=== PATIENT | male | born 1945 | race Caucasian/White ===

== ENCOUNTER 2021-04-12 12:10 | Inpatient (IN) | payer BC, MEDICARE ==
--- NOTE | 2021-04-12 12:55 | ED ---
General Adult HPI - General Chief complaint: Neuro Symptoms/Deficit Stated complaint: Slurred Speech Time Seen by Provider: 04/12/21 12:28 Source: patient, family, RN notes reviewed Mode of arrival: ambulatory Limitations: no limitations - History of Present Illness Initial comments: Patient is a pleasant 75-year-old male presenting to the emergency Department with complaints of slurred speech and facial weakness. Patient did have some slurred speech yesterday, mild. This is persistent today. Patient also now has right-sided facial weakness since this morning. No headache. No confusion. No extremity weakness. No difficulty with ambulation. No history of similar symptoms previously. Onset was around 5:00 PM yesterday - Related Data Home Medications Medication Instructions Recorded Confirmed Folic Acid 1 mg PO HS 08/24/16 04/12/21 Gabapentin [Neurontin] 300 mg PO TID 08/24/16 04/12/21 Metoprolol Tartrate [Lopressor] 50 mg PO BID 08/24/16 04/12/21 Simvastatin [Zocor] 20 mg PO HS 08/24/16 04/12/21 Certolizumab Pegol [Cimzia] 400 mg SQ Q30D 04/12/21 04/12/21 Cyanocobalamin (Vitamin B-12) 2,500 mcg PO DAILY 04/12/21 04/12/21 [Vitamin B-12] Methotrexate 50mg/2mg Vial 25 mg SQ WE 04/12/21 04/12/21 Allergies Allergy/AdvReac Type Severity Reaction Status Date / Time mustard Allergy Anaphylaxis Verified 04/12/21 14:53 soybean Allergy Anaphylaxis Verified 04/12/21 14:53 grain dust Allergy Unknown Uncoded 04/12/21 14:53 Review of Systems ROS Statement: Those systems with pertinent positive or pertinent negative responses have been documented in the HPI. ROS Other: All systems not noted in ROS Statement are negative. Constitutional: Denies: fever Eyes: Denies: eye pain ENT: Denies: ear pain Respiratory: Denies: cough Cardiovascular: Denies: chest pain Endocrine: Denies: fatigue Gastrointestinal: Denies: abdominal pain Genitourinary: Denies: dysuria Musculoskeletal: Denies: back pain Skin: Denies: rash Neurological: Reports: as per HPI, weakness. Denies: headache Past Medical History Past Medical History: Hypertension History of Any Multi-Drug Resistant Organisms: None Reported Past Surgical History: Orthopedic Surgery Past Psychological History: No Psychological Hx Reported Smoking Status: Never smoker Past Alcohol Use History: Occasional Past Drug Use History: None Reported General Exam Limitations: no limitations General appearance: alert, in no apparent distress Head exam: Present: normocephalic Eye exam: Present: normal appearance, PERRL, EOMI ENT exam: Present: normal oropharynx Neck exam: Present: normal inspection Respiratory exam: Present: normal lung sounds bilaterally Cardiovascular Exam: Present: regular rate, normal rhythm GI/Abdominal exam: Present: soft. Absent: tenderness Extremities exam: Present: normal inspection Neurological exam: Present: alert, oriented X3 Expanded Neurological exam: Present: protecting the airway, other (Age and does have some slurred speech.) Cranial nerves: EOM's Intact: Normal, Facial Palsy with Forehead Movement: Abnormal Right (Right facial weakness. Forehead and eyelids move normal) Sensory exam: Upper Extremity Light Touch: Normal, Lower Extremity Light Touch: Normal Motor strength exam: RUE: 5, LUE: 5, RLE: 5, LLE: 5 Eye Response: (4) open spontaneously Motor Response: (6) obeys commands Verbal Response: (5) oriented Psychiatric exam: Present: normal affect, normal mood Skin exam: Present: normal color Course Vital Signs 04/12/21 04/12/21 04/12/21 12:11 13:16 14:00 Temperature 98.0 F Pulse Rate 49 L 49 L 57 L Respiratory 18 18 18 Rate Blood Pressure 181/84 136/82 167/93 O2 Sat by Pulse 97 95 97 Oximetry - Reevaluation(s) Reevaluation #1: 04/12/21 13:05 Patient is not a TPA candidate secondary to onset more Than 4.5 hours. EKG Findings - EKG Comments: EKG Findings:: Sinus bradycardia with a rate of 50. NC 192. QRS 88. QT 424. QTC 36. Normal axis. Normal QRS. Early repolarization. Medical Decision Making - Medical Decision Making Patient reevaluated and unchanged. Patient and family updated on results and plan. Case was discussed with Dr. Perdue, who will admit covering hospital call - Lab Data Result diagrams: 04/12/21 13:24 04/12/21 13:24 Lab Results 04/12/21 04/12/21 04/12/21 Range/Units 13:24 13:24 13:24 WBC 5.3 (3.8-10.6) k/uL RBC 4.11 L (4.30-5.90) m/uL Hgb 13.7 (13.0-17.5) gm/dL Hct 39.9 (39.0-53.0) % MCV 97.2 (80.0-100.0) fL MCH 33.4 (25.0-35.0) pg MCHC 34.4 (31.0-37.0) g/dL RDW 12.7 (11.5-15.5) % Plt Count 184 (150-450) k/uL MPV 8.6 Neutrophils % 48 % Lymphocytes % 33 % Monocytes % 9 % Eosinophils % 8 % Basophils % 1 % Neutrophils # 2.6 (1.3-7.7) k/uL Lymphocytes # 1.7 (1.0-4.8) k/uL Monocytes # 0.5 (0-1.0) k/uL Eosinophils # 0.4 (0-0.7) k/uL Basophils # 0.0 (0-0.2) k/uL PT 10.3 (9.0-12.0) sec INR 1.0 (<1.2) APTT 26.2 (22.0-30.0) sec Sodium 136 L (137-145) mmol/L Potassium 4.9 (3.5-5.1) mmol/L Chloride 104 (98-107) mmol/L Carbon Dioxide 24 (22-30) mmol/L Anion Gap 8 mmol/L BUN 17 (9-20) mg/dL Creatinine 1.26 H (0.66-1.25) mg/dL Est GFR (CKD-EPI)AfAm 64 (>60 ml/min/1.73 sqM) Est GFR (CKD-EPI)NonAf 55 (>60 ml/min/1.73 sqM) Glucose 77 (74-99) mg/dL Calcium 8.8 (8.4-10.2) mg/dL Total Bilirubin 0.5 (0.2-1.3) mg/dL AST 37 (17-59) U/L ALT 16 (4-49) U/L Alkaline Phosphatase 57 (38-126) U/L Troponin I (0.000-0.034) ng/mL Total Protein 7.6 (6.3-8.2) g/dL Albumin 4.2 (3.5-5.0) g/dL 04/12/21 Range/Units 13:24 WBC (3.8-10.6) k/uL RBC (4.30-5.90) m/uL Hgb (13.0-17.5) gm/dL Hct (39.0-53.0) % MCV (80.0-100.0) fL MCH (25.0-35.0) pg MCHC (31.0-37.0) g/dL RDW (11.5-15.5) % Plt Count (150-450) k/uL MPV Neutrophils % % Lymphocytes % % Monocytes % % Eosinophils % % Basophils % % Neutrophils # (1.3-7.7) k/uL Lymphocytes # (1.0-4.8) k/uL Monocytes # (0-1.0) k/uL Eosinophils # (0-0.7) k/uL Basophils # (0-0.2) k/uL PT (9.0-12.0) sec INR (<1.2) APTT (22.0-30.0) sec Sodium (137-145) mmol/L Potassium (3.5-5.1) mmol/L Chloride (98-107) mmol/L Carbon Dioxide (22-30) mmol/L Anion Gap mmol/L BUN (9-20) mg/dL Creatinine (0.66-1.25) mg/dL Est GFR (CKD-EPI)AfAm (>60 ml/min/1.73 sqM) Est GFR (CKD-EPI)NonAf (>60 ml/min/1.73 sqM) Glucose (74-99) mg/dL Calcium (8.4-10.2) mg/dL Total Bilirubin (0.2-1.3) mg/dL AST (17-59) U/L ALT (4-49) U/L Alkaline Phosphatase (38-126) U/L Troponin I <0.012 (0.000-0.034) ng/mL Total Protein (6.3-8.2) g/dL Albumin (3.5-5.0) g/dL - Radiology Data Radiology results: report reviewed (Computed tomography scan of the brain shows atrophy and chronic small vessel changes. CT angios shows no significant stenosis or occlusion or aneurysm.), image reviewed (Two-view chest x-ray shows no acute process.) Disposition Clinical Impression: Cerebrovascular accident (CVA) Disposition: ADMITTED IP TO THIS HOSP Is patient prescribed a controlled substance at d/c from ED?: No Referrals: Nonstaff,Physician [Primary Care Provider] - 1-2 days Decision Time: 15:28
[2021-04-12] MEDS ORDERED: SODIUM CHLORIDE 0.9% 1,000 ML IV STA (13:03)
[2021-04-12 13:32] LABS: Basophils % (A) 1 %; Eosinophils # (A) 0.4 k/uL (0-0.7); Eosinophils % (A) 8 %; HCT 39.9 % (39.0-53.0); HGB 13.7 gm/dL (13.0-17.5); Lymphocytes # (A) 1.7 k/uL (1.0-4.8); Lymphocytes % (A) 33 %; MCH 33.4 pg (25.0-35.0); MCHC 34.4 g/dL (31.0-37.0); MCV 97.2 fL (80.0-100.0); Mean Platelet Volume 8.6; Monocytes # (A) 0.5 k/uL (0-1.0); Monocytes % (A) 9 %; Neutrophils # (A) 2.6 k/uL (1.3-7.7); Neutrophils % (A) 48 %; Platelet Count 184 k/uL (150-450); RBC 4.11 m/uL (4.30-5.90); RDW 12.7 % (11.5-15.5); WBC 5.3 k/uL (3.8-10.6)
[2021-04-12 13:45] LABS: Partial Thromboplastin Time 26.2 sec (22.0-30.0); Prothrombin Time 10.3 sec (9.0-12.0)
[2021-04-12 13:49] LABS: Albumin 4.2 g/dL (3.5-5.0); Calcium 8.8 mg/dL (8.4-10.2); Potassium 4.9 mmol/L (3.5-5.1); Total Bilirubin 0.5 mg/dL (0.2-1.3); Total Protein 7.6 g/dL (6.3-8.2)
--- NOTE | 2021-04-12 13:57 | XR ---
EXAMINATION TYPE: XR chest 2V DATE OF EXAM: 04/12/2021 COMPARISON: NONE HISTORY: Altered mental status, slurred speech TECHNIQUE: Frontal and lateral views of the chest are obtained. FINDINGS: There is no focal air space opacity, pleural effusion, or pneumothorax seen. The cardiac silhouette size is within normal limits. There are overlying leads. The aorta is dense. There is arth ropathy in the shoulders. The osseous structures are intact. IMPRESSION: No acute cardiopulmonary process.
--- NOTE | 2021-04-12 14:12 | CT ---
EXAMINATION TYPE: CT brain wo con for TPA DATE OF EXAM: 04/12/2021 COMPARISON: None HISTORY: slurred speech CT DLP: 1044 mGycm Automated exposure control for dose reduction was used. Helical acquisition through the brain. FINDINGS: There is opacification of left maxillary sinus, and mucosal disease present in the right maxillary si nus, ethmoid air cells. Cortical atrophy is present. Periventricular white matter shows patchy low at tenuation. There may be a small lacunar infarct in the basal ganglia on the left. There is no hemorrh age or hydrocephalus. There are cerebral vascular calcifications. IMPRESSION: AGE-RELATED CHANGES OF ATROPHY AND CHRONIC SMALL VESSEL ISCHEMIA.
--- NOTE | 2021-04-12 15:13 | CT ---
EXAMINATION TYPE: CT angio head neck DATE OF EXAM: 04/12/2021 HISTORY: slurred speech COMPARISON: CT brain 04/12/2021 CT DLP: 443.1 mGycm. Automated Exposure Control for Dose Reduction was Utilized. TECHNIQUE: CTA scan of the neck is performed with IV Contrast, patient injected with 65 mL of Isovue 370, axial images are obtained, coronal and sagittal reformatted images are reviewed. Three-D recons tructed images are created on an independent workstation and reviewed. FINDINGS: Carotid/Vascular Structures: Classic branching pattern of the aortic arch. Atherosclerotic changes of the bilateral carotid bulbs. No hemodynamically significant stenosis, occlusion, or aneurysm of the bilateral common carotid or internal carotid arteries. Vertebral arteries are patent. The vertebrobas ilar system is supplied by the left vertebral artery. The right vertebral artery terminates in the ri t PICA, representing anatomic variant. Mild emphysematous changes at the lung apices. 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 There is no hemodynamically significant stenosis, occlusion, or aneurysm of the arteries of the he ad. Mucosal thickening of the bilateral maxillary sinuses. IMPRESSION: No hemodynamically significant stenosis, occlusion, or aneurysm of the arteries of the head of the ne ck.
[2021-04-12] MEDS ORDERED: ASPIRIN 325 MG TAB PO STA (15:29)
[2021-04-12] MEDS: SODIUM CHLORIDE 0.9% 1,000 ML IV SCH (15:47)
--- NOTE | 2021-04-12 23:02 | P.HPIM ---
History of Present Illness This is a pleasant 75 years old male with past medical history of rheumatoid arthritis, he follows up at the ID at [place]. He presents with his fiance who stated that last night patient has some slurred speech but she thought he was tired however this morning his speech was slurred speech and she notices deviation of the mouth Schobert come to emergency room. Patient is fully awake and oriented, no headache, no weakness or numbness, he has some slivers H and is deviated to the left side. He denies smoking, no illicit drugs. Occasional alcohol Vitals are stable with mild bradycardia at 54. Blood pressure is slightly el evated 164/71. Labs including CBC, INR, BMP and liver enzymes are unremarkable except for mildly elevated creatinine at 1.26, baseline is unavailable. Troponin is negative at 0.012. Coronal virus not detected. Chest x-ray: The process. The brain: No acute process CTA of the head and neck: Significant hemodynamic stenosis or arterial occlusion EKG showed sinus bradycardia at 50 BPM, no significant ST-T changes, early repolarization In the emergency room patient was started on aspirin, Plavix also added, neurology service were consulted. Review of Systems CONSTITUTIONAL: No fever, no malaise, no fatigue. HEENT: No recent visual problems or hearing problems. Denied any sore throat. CARDIOVASCULAR: No orthopnea, PND, no palpitations, no syncope. PULMONARY: No shortness of breath, no cough, no hemoptysis. GASTROINTESTINAL: No diarrhea, no nausea, no vomiting, no abdominal pain. Normoactive bowel sounds. NEUROLOGICAL: No headaches, no weakness, no numbness. HEMATOLOGICAL: Denies any bleeding or petechiae. GENITOURINARY: Denies any burning micturition, frequency, or urgency. MUSCULOSKELETAL/RHEUMATOLOGICAL: Denies any joint pain, swelling, or any muscle pain. ENDOCRINE: Denies any polyuria or polydipsia. Past Medical History Past Medical History: Hypertension History of Any Multi-Drug Resistant Organisms: None Reported Past Surgical History: Orthopedic Surgery Past Psychological History: No Psychological Hx Reported Smoking Status: Never smoker Past Alcohol Use History: Occasional Past Drug Use History: None Reported Medications and Allergies Home Medications Medication Instructions Recorded Confirmed Type Folic Acid 1 mg PO HS 08/24/16 04/12/21 History Gabapentin [Neurontin] 300 mg PO TID 08/24/16 04/12/21 History Metoprolol Tartrate [Lopressor] 50 mg PO BID 08/24/16 04/12/21 History Simvastatin [Zocor] 20 mg PO HS 08/24/16 04/12/21 History Certolizumab Pegol [Cimzia] 400 mg SQ Q30D 04/12/21 04/12/21 History Cyanocobalamin (Vitamin B-12) 2,500 mcg PO DAILY 04/12/21 04/12/21 History [Vitamin B-12] Methotrexate 50mg/2mg Vial 25 mg SQ WE 04/12/21 04/12/21 History Allergies Allergy/AdvReac Type Severity Reaction Status Date / Time mustard Allergy Anaphylaxis Verified 04/12/21 14:53 soybean Allergy Anaphylaxis Verified 04/12/21 14:53 grain dust Allergy Unknown Uncoded 04/12/21 14:53 Physical Exam Vitals: Vital Signs Temp Pulse Resp BP Pulse Ox 04/12/21 16:00 51 L 18 165/84 97 04/12/21 15:00 51 L 18 179/89 97 04/12/21 14:00 57 L 18 167/93 97 04/12/21 13:16 49 L 18 136/82 95 04/12/21 12:11 98.0 F 49 L 18 181/84 97 Intake and Output 04/12/21 04/12/21 04/12/21 06:59 14:59 22:59 Other: Weight 77.474 kg GENERAL: The patient is alert and oriented x3, not in any acute distress. Well developed, well nourished. HEENT: Pupils are round and equally reacting to light. EOMI. No scleral icterus. No conjunctival pallor. Normocephalic, atraumatic. No pharyngeal erythema. No thyromegaly. CARDIOVASCULAR: S1 and S2 present. No murmurs, rubs, or gallops. PULMONARY: Chest is clear to auscultation, no wheezing or crackles. ABDOMEN: Soft, nontender, nondistended, normoactive bowel sounds. No palpable organomegaly. MUSCULOSKELETAL: No joint swelling or deformity. EXTREMITIES: No cyanosis, clubbing, or pedal edema. -NEUROLOGICAL: Patient with some slurred speech and face deviated to the left side, rest of cranial nerves are grossly intact. Patient is 5/5 and sensation is intact in all extremities. In general signs are absent SKIN: No rashes. no petechiae. Results CBC & Chem 7: 04/12/21 13:24 04/12/21 13:24 Labs: Abnormal Lab Results - Last 24 Hours (Table) 04/12/21 04/12/21 Range/Units 13:24 13:24 RBC 4.11 L (4.30-5.90) m/uL Sodium 136 L (137-145) mmol/L Creatinine 1.26 H (0.66-1.25) mg/dL Assessment and Plan Assessment: Acute slurred speech and left facial division suspicious for right-sided stroke. Permissive hypertension History of rheumatoid arthritis Plan: This is a pleasant 75 years old male who presents with stroke. Continue with aspirin and Plavix. Neurological assessment and neurology service consult Check hemoglobin A1c, B12 and folate, check TSH. Echocardiogram and carotid duplex. Labs and medication were reviewed.. Continue same treatment. Continue with symptomatic treatment. Resume home medication. Monitor lytes and vitals. DVT and GI prophylaxis. Further recommendations depends on the clinical course of the patient DVT prophylaxis: Subcutaneous heparin GI Prophylaxis: Pepcid PT/OT: Pending Prognosis is guarded
--- NOTE | 2021-04-13 00:02 | P.CNNES ---
History of Present Illness Consult date: 04/12/21 Requesting physician: Nghia Massey Reason for Consult: CVA History of Present Illness: Patient is a 75-year-old right-handed male came to the hospital today at 12:10 PM. Patient came to the hospital for slurred speech and facial weakness. Patient states that his symptoms started yesterday at around 5:30 PM when his voice was slurred. This was mainly noticed by his . She thought he was just tired and did not seek medical attention. He went to sleep. This morning when patient woke up, he continued to have slurred speech and there was right facial droop noticed by his . There was no associated numbness tingling weakness of the upper or lower extremities. He never had any history of strokes or TIAs in the past. His balance was fine. Patient's brought him to the hospital. Vital signs on arrival blood pressure 181/84, pulse rate 49, temperature 98.0. Blood pressure has been staying up, most recent 167/84. Blood test shows normal CBC, PT/PTT, sodium 136 potassium 4.9, BUN 17, creatinine 1.26. Hepatic panel, troponin are normal. Frank virus PCR negative. CT head showed age-related ch anges of atrophy and chronic small vessel ischemia. CTA of head and neck showed no hemodynamically significant stenosis occlusion or aneurysm of the arteries of the head and neck. EKG shows sinus bradycardia, early repolarization. Patient does take simvastatin 20 mg, metoprolol 50 mg twice a day, gabapentin 300 mg 3 times a day, folic acid 1 mg at bedtime, B12 2500 g, methotrexate 25 mg subcu weekly, Cimzia. Patient does not take any antiplatelet medication at home. Patient has borderline diabetes. He has hypertension. Patient has smoked 1 pack per day for 30 years, quit at age 49. He drinks beer "here and there occasionally". Not a heavy drinker. Patient states that after he arrived to the hospital, his speech is slightly improved. Review of Systems All other review of systems completely unremarkable except as mentioned per HPI. All other 14 point review of systems reviewed. Patient is hard of hearing. Denies any double vision, loss of vision. No chest pain, abdominal pain, nausea vomiting diarrhea. Past Medical History Past Medical History: Hypertension History of Any Multi-Drug Resistant Organisms: None Reported Past Surgical History: Orthopedic Surgery Past Psychological History: No Psychological Hx Reported Smoking Status: Never smoker Past Alcohol Use History: Occasional Past Drug Use History: None Reported Medications and Allergies Home Medications Medication Instructions Recorded Confirmed Type Folic Acid 1 mg PO HS 08/24/16 04/12/21 History Gabapentin [Neurontin] 300 mg PO TID 08/24/16 04/12/21 History Metoprolol Tartrate [Lopressor] 50 mg PO BID 08/24/16 04/12/21 History Simvastatin [Zocor] 20 mg PO HS 08/24/16 04/12/21 History Certolizumab Pegol [Cimzia] 400 mg SQ Q30D 04/12/21 04/12/21 History Cyanocobalamin (Vitamin B-12) 2,500 mcg PO DAILY 04/12/21 04/12/21 History [Vitamin B-12] Methotrexate 50mg/2mg Vial 25 mg SQ WE 04/12/21 04/12/21 History Allergies Allergy/AdvReac Type Severity Reaction Status Date / Time mustard Allergy Anaphylaxis Verified 04/12/21 14:53 soybean Allergy Anaphylaxis Verified 04/12/21 14:53 grain dust Allergy Unknown Uncoded 04/12/21 14:53 Physical Examination - Vital Signs Vital Signs: Vital Signs Temp Pulse Resp BP Pulse Ox 04/12/21 18:00 66 18 167/84 97 04/12/21 17:00 54 L 18 97 04/12/21 16:00 51 L 18 165/84 97 04/12/21 15:00 51 L 18 179/89 97 04/12/21 14:00 57 L 18 167/93 97 04/12/21 13:16 49 L 18 136/82 95 04/12/21 12:11 98.0 F 49 L 18 181/84 97 Intake and Output 04/12/21 04/12/21 04/12/21 06:59 14:59 22:59 Other: Weight 77.474 kg Patient is an elderly male, in no acute distress. Patient is alert awake oriented to time place and person. He knows it is and of March and the year is 2020 and that he is in [facility]. Speech is moderately dysarthric and language functions are normal. No aphasia. Patient can name and repeat very well. Attention, concentration and fund of knowledge is adequate. On cranial examination, pupils are round and reacting to light, visual burr are full on confrontation with no neglect on double simultaneous stimulation, extraocular muscles are intact with no nystagmus. Patient has mild right facial asymmetry, tongue protrudes to the midline. Palatal elevation and sensation normal, hearing is at least moderately decreased and shoulder shrug normal, facial sensation normal. On muscle strength testing, there no definitive pronator drift and the strength is normal in arms and legs distally and proximally, except right deltoid which is 5-. Patient attributes right deltoid weakness to doing yard work she yesterday. Deep tendon reflexes are 1 in the upper limbs, trace at the right knee, "artificial knee on the left". Ankles are absent and plantars downgoing. Sensory to touch is equal with no neglect. Cerebellar function showed no ataxia for [id number] testing. No dysdiadochokinesia. Tone and bulk of muscles normal. Gait deferred. On general examination, there is no carotid bruit or murmur, S1-S2 audible. Abd omen is soft nontender. Chest is clear. Peripheral pulses are present. No edema. Results - Laboratory Findings CBC and BMP: 04/12/21 13:24 04/12/21 13:24 Abnormal Lab Findings: Abnormal Labs 04/12/21 04/12/21 13:24 13:24 RBC 4.11 L Sodium 136 L Creatinine 1.26 H Assessment and Plan Assessment: * Probable acute ischemic CVA manifesting with slurred speech and right facial droop. * Hypertension * X tobacco use Plan: * Patient will undergo MRI of the brain to evaluate for an acute stroke. * 2-D echo with bubble study to rule out PFO. * As the CTA of head and neck is normal, no need for carotid Doppler. * We will check fasting a.m. lipid panel, hemoglobin A1c. * Agree with checking B12, folate and TSH. * Patient still has moderate dysarthria. We will place patient on dual antiplatelet medication. Patient was not taking any antiplatelet medication at home. * Continue telemetry monitoring rule out arrhythmia. * We will follow clinically. * Permissive hypertension. * Continue close neuro checks.
[2021-04-13] MEDS: SODIUM CHLORIDE 0.9% 1,000 ML IV SCH ×2 (08:43→08:48)
[2021-04-13] MEDS: CLOPIDOGREL 75 MG TAB PO SCH ×2 (08:48→21:05)
[2021-04-13] MEDS: GABAPENTIN 300 MG CAP PO SCH ×4 (08:48→21:06)
[2021-04-13] MEDS: HEPARIN SODIUM,PORCINE/PF 5,000 UNIT/0.5 ML SYRINGE SQ SCH ×2 (08:48→21:06)
[2021-04-13] MEDS: METOPROLOL TARTRATE 25 MG TAB PO SCH ×2 (08:49→21:06)
[2021-04-13] MEDS: CYANOCOBALAMIN 500 MCG TAB PO SCH (08:53)
[2021-04-13] MEDS ORDERED: FAMOTIDINE 20 MG/2 ML VIAL IV SCH (09:00)
--- NOTE | 2021-04-13 09:28 | P.PN ---
Subjective This is a pleasant 75 years old male with past medical history of rheumatoid arthritis, [facility] He presents with his fiance who stated that last night patient has some slurred speech but she thought he was tired however this morning his speech was slurred speech and she notices deviation of the mouth Schobert come to emergency room. Patient is fully awake and oriented, no headache, no weakness or numbness, he has some slivers H and is deviated to the left side. He denies smoking, no illicit drugs. Occasional alcohol Vitals are stable with mild bradycardia at 54. Blood pressure is slightly elevated 164/71. Labs including CBC, INR, BMP and liver enzymes are unremarkable except for mildly elevated creatinine at 1.26, baseline is unavailable. Troponin is negative at 0.012. Coronal virus not detected. Chest x-ray: The process. The brain: No acute process CTA of the head and neck: Significant hemodynamic stenosis or arterial occlusion EKG showed sinus bradycardia at 50 BPM, no significant ST-T changes, early repolarization In the emergency room patient was started on aspirin, Plavix also added, neurolo gy service were consulted. 04/13/2021 Patient still have slurred this patient today but this fascial deviated to the left side. No other new complaint. Skin if he can be discharged home today I explained to him we started him a new medication and distal lumen workup and he agrees with it. He is hemodynamically stable. He continued on aspirin and Plavix and normal saline at 75 mL/h MRI of the brain and echocardiogram are still pending as well as B12 level and TSH and hemoglobin A1c. Objective - Vital Signs Vital signs: Vital Signs Temp 97.5 F L 04/13/21 08:37 Pulse 65 04/13/21 08:37 Resp 18 04/13/21 08:37 BP 167/86 04/13/21 08:37 Pulse Ox 94 L 04/13/21 08:37 Intake & Output 04/12/21 04/13/21 04/13/21 18:59 06:59 18:59 Weight 77.474 kg - Exam GENERAL: The patient is alert and oriented x3, not in any acute distress. Well developed, well nourished. HEENT: Pupils are round and equally reacting to light. EOMI. No scleral icterus. No conjunctival pallor. Normocephalic, atraumatic. No pharyngeal erythema. No thyromegaly. CARDIOVASCULAR: S1 and S2 present. No murmurs, rubs, or gallops. PULMONARY: Chest is clear to auscultation, no wheezing or crackles. ABDOMEN: Soft, nontender, nondistended, normoactive bowel sounds. No palpable organomegaly. MUSCULOSKELETAL: No joint swelling or deformity. EXTREMITIES: No cyanosis, clubbing, or pedal edema. -NEUROLOGICAL: Patient still have slurred speech, however right facial droop is less severe today. The rest of Cranial nerves are grossly intact . Strength is 5/5, sensation is intact SKIN: No rashes. no petechiae. - Labs CBC & Chem 7: 04/12/21 13:24 04/12/21 13:24 Labs: Abnormal Lab Results - Last 24 Hours (Table) 04/12/21 04/12/21 Range/Units 13:24 13:24 RBC 4.11 L (4.30-5.90) m/uL Sodium 136 L (137-145) mmol/L Creatinine 1.26 H (0.66-1.25) mg/dL Assessment and Plan Assessment: Acute slurred speech and left facial division suspicious for right-sided stroke. Permissive hypertension History of rheumatoid arthritis Plan: This is a pleasant 75 years old male who presents with stroke. Continue with aspirin and Plavix. Neurological assessment and neurology service consult Check hemoglobin A1c, B12 and folate, check TSH. Echocardiogram and carotid duplex. Labs and medication were reviewed.. Continue same treatment. Continue with symptomatic treatment. Resume home medication. Monitor lytes and vitals. DVT and GI prophylaxis. Further recommendations depends on the clinical course of the patient DVT prophylaxis: Subcutaneous heparin GI Prophylaxis: Pepcid PT/OT: Pending Prognosis is guarded
[2021-04-13 10:50] LABS: Chol/HDL Ratio 2.76; LDL Cholesterol,Calculated 73.4 mg/dL (0.0-131.0); VLDL Calculation 16.6 mg/dL (5.00-40.00)
--- NOTE | 2021-04-13 10:50 | MR ---
MR brain without contrast HISTORY: Cerebrovascular accident, slurred speech Multiplanar multisequence imaging through the brain, correlation to CT brain 04/12/2021 There is a small focus of restricted diffusion within the periventricular white matter left frontopar ietal region, corresponding hyperintensity on inversion recovery T2-weighted sequences, there are add itional confluent and scattered hyperintensities within the periventricular, pericallosal, subcortica l white matter. There is motion on exam. There are normal vascular flow voids present. Sinus disease is present withi n the bilateral maxillary sinuses, ethmoid air cells and frontal sinus. Cerebellopontine angles, pratima us callosum, pituitary, cervical medullary junction within normal limits. IMPRESSION: Findings consistent with subacute cerebral vascular accident aerated chronic small vessel ischemic changes, extensive sinus disease.
[2021-04-13 11:05] LABS: Folate, Serum 13.8 ng/mL
[2021-04-13 12:40] LABS: Hemoglobin A1C 5.9 % (4.0-6.0)
[2021-04-13] MEDS: FOLIC ACID 1 MG TAB PO SCH (21:05)
[2021-04-13] MEDS: FAMOTIDINE 20 MG TAB PO SCH (21:05)
[2021-04-14] MEDS: SODIUM CHLORIDE 0.9% 1,000 ML IV SCH ×2 (04:45→14:23)
[2021-04-14] MEDS ORDERED: ASPIRIN 325 MG TAB PO SCH (09:00)
[2021-04-14] MEDS: CYANOCOBALAMIN 500 MCG TAB PO SCH (09:22)
[2021-04-14] MEDS: HEPARIN SODIUM,PORCINE/PF 5,000 UNIT/0.5 ML SYRINGE SQ SCH ×2 (09:23→20:45)
[2021-04-14] MEDS: METOPROLOL TARTRATE 25 MG TAB PO SCH ×2 (09:23→20:43)
[2021-04-14] MEDS: FAMOTIDINE 20 MG TAB PO SCH ×2 (09:23→20:44)
[2021-04-14] MEDS: GABAPENTIN 300 MG CAP PO SCH ×3 (09:23→20:44)
--- NOTE | 2021-04-14 09:57 | P.PN ---
Subjective Progress Note Date: 04/13/21 Patient was seen for a follow-up. Patient was seen in the ED department. Patient is laying comfortably in the bed. Patient states his speech has improved slightly. No new focal symptoms. Denies headache. Patient has been walking to the bathroom and no problems with walking or balance at this time. No new focal symptoms. Objective - Vital Signs Vital signs: Vital Signs Temp 97.8 F 04/13/21 21:25 Pulse 65 04/13/21 21:25 Resp 17 04/13/21 21:25 BP 191/86 04/13/21 21:25 Pulse Ox 97 04/13/21 21:25 Intake & Output 04/13/21 04/13/21 04/14/21 06:59 18:59 06:59 Intake Total 615 Balance 615 Weight 77.474 kg Intake: IV 375 Sodium Chloride 0.9% 1, 375 000 ml @ 75 mls/hr IV . [id number] LUCY Rx#:[id number] Oral 240 - Exam On examination patient is an elderly male, in no distress. Speech is mild to moderately dysarthric. No aphasia. Can name and repeat. Cranial nerves are significant for right facial weakness. Tongue protrudes slightly to the left. Facial sensations normal. Visual burr full. Muscle strength no drift and the strength is normal in arms and legs. Sensations are equal with no neglect. No ataxia. - Labs CBC & Chem 7: 04/12/21 13:24 04/12/21 13:24 Labs: Abnormal Lab Results - Last 24 Hours (Table) 04/13/21 Range/Units 04:47 Vitamin B12 1050.0 H (200.0-944.0) pg/mL Assessment and Plan Assessment: * Acute CVA involving subcortical white matter on the left, likely from small vessel disease. CVA manifesting with slurred speech and right facial droop. * Hypertension * X tobacco use Plan: * MRI of the brain confirmed acute to subacute CVA involving the periventricular white matter left frontoparietal region. Mechanism likely from small vessel disease. * 2-D echo with bubble study to rule out PFO, still outstanding. * CTA of head and neck is normal, no need for carotid Doppler. * Fasting a.m. lipid panel with cholesterol 141, LDL 73, HDL 51, triglycerides 83. * Hemoglobin A1c 5.9. * B12 1050, folate 13.8 and TSH pending. * Continue dual antiplatelet medication for 3 weeks, then stop Plavix and then maintain on aspirin 81 mg twice a day. Patient was not taking any antiplatelet medication at home prior to this stroke. * Continue telemetry monitoring rule out arrhythmia. * Permissive hypertension. * Neurologically clear, when 2-D echo reports available.
[2021-04-14] MEDS ORDERED: METOPROLOL TARTRATE 50 MG TAB PO SCH ×2 (13:30→21:00)
[2021-04-14] MEDS ORDERED: METOPROLOL TARTRATE 25 MG TAB PO STA (13:31)
[2021-04-14] MEDS ORDERED: amLODIPine 2.5 MG TAB PO SCH (14:45)
[2021-04-14] MEDS: CEPHALEXIN 500 MG CAP PO SCH ×3 (15:58→20:44)
[2021-04-14] MEDS ORDERED: hydrALAZINE HCL 25 MG TAB PO PRN (17:51)
--- NOTE | 2021-04-14 17:58 | ECHOF ---
Referral Reason:CVA MEASUREMENTS -------- HEIGHT: 182.9 cm WEIGHT: 79.8 kg BP: 190/82 RVIDd: 3.7 cm (< 3.3) IVSd: 1.5 cm (0.6 - 1.1) LVIDd: 4.0 cm (3.9 - 5.3) LVPWd: 1.6 cm (0.6 - 1.1) IVSs: 1.8 cm LVIDs: 2.1 cm LVPWs: 1.9 cm LAESV Index (A-L): 20.41 ml/m Ao Diam: 3.3 cm (2.0 - 3.7) AV Cusp: 1.9 cm (1.5 - 2.6) LA Diam: 4.2 cm (2.7 - 3.8) MV EXCURSION: 17.297 mm (> 18.000) MV EF SLOPE: 78 mm/s (70 - 150) EPSS: 0.6 cm MV E Michael: 1.09 m/s MV DecT: 224 ms MV A Michael: 0.78 m/s MV E/A Ratio: 1.40 RAP: 5.00 mmHg RVSP: 25.06 mmHg FINDINGS -------- Sinus rhythm. This was a technically adequate study. The left ventricular size is normal. There is moderate concentric left ventricular hypertrophy. O verall left ventricular systolic function is normal with, an EF between 55 - 60 %. The right ventricle is mild to moderately enlarged. Normal LA size by volume 22+/-6 ml/m2. The right atrial size is normal. Contrast study was performed with 2 iv injections of 8 ccs of agitated normal saline, at rest, and wi th cough. No evidence of interatrial communication by agitated saline study analysis. Interatrial and interven tricular septum intact. The aortic valve is trileaflet and appears structurally normal. There is no evidence of aortic regu rgitation. There is no evidence of aortic stenosis. Mild mitral regurgitation is present. Mild tricuspid regurgitation present. There is no evidence of pulmonary hypertension. The right v entricular systolic pressure, as measured by Doppler, is 25.06mmHg. There is no pulmonic regurgitation present. The aortic root size is normal. Normal inferior vena cava with normal inspiratory collapse consistent with estimated right atrial pre ssure of 5 mmHg. There is no pericardial effusion. CONCLUSIONS -------- 1. The left ventricular size is normal. 2. There is moderate concentric left ventricular hypertrophy. 3. Overall left ventricular systolic function is normal with, an EF between 55 - 60 %. 4. The right ventricle is mild to moderately enlarged. 5. No evidence of interatrial communication by color flow doppler analysis. 6. Mild mitral regurgitation is present. 7. Mild tricuspid regurgitation present. CIVIL TECHNICIAN: Bernice Cerrato RDCS
[2021-04-14] MEDS: CLOPIDOGREL 75 MG TAB PO SCH (20:44)
[2021-04-14] MEDS: amLODIPine 2.5 MG TAB PO SCH (20:44)
[2021-04-14] MEDS: FOLIC ACID 1 MG TAB PO SCH (20:44)
[2021-04-14] MEDS ORDERED: ATORVASTATIN 40 MG TAB PO SCH (21:00)
[2021-04-14] MEDS ORDERED: METHOTREXATE SQ SCH (21:36)
--- NOTE | 2021-04-14 22:05 | P.PN ---
Subjective This is a pleasant 75 years old male with past medical history of rheumatoid arthritis, [facility] [place] He presents with his fiance who stated that last night patient has some slurred speech but she thought he was tired however this morning his speech was slurred speech and she notices deviation of the mouth Schobert come to emergency room. Patient is fully awake and oriented, no headache, no weakness or numbness, he has some slivers H and is deviated to the left side. He denies smoking, no illicit drugs. Occasional alcohol Vitals are stable with mild bradycardia at 54. Blood pressure is slightly elevated 164/71. Labs including CBC, INR, BMP and liver enzymes are unremarkable except for mildly elevated creatinine at 1.26, baseline is unavailable. Troponin is negative at 0.012. Coronal virus not detected. Chest x-ray: The process. The brain: No acute process CTA of the head and neck: Significant hemodynamic stenosis or arterial occlusion EKG showed sinus bradycardia at 50 BPM, no significant ST-T changes, early repolarization In the emergency room patient was started on aspirin, Plavix also added, neurolo gy service were consulted. 04/13/2021 Patient still have slurred this patient today but this fascial deviated to the left side. No other new complaint. Skin if he can be discharged home today I explained to him we started him a new medication and distal lumen workup and he agrees with it. He is hemodynamically stable. He continued on aspirin and Plavix and normal saline at 75 mL/h MRI of the brain and echocardiogram are still pending as well as B12 level and TSH and hemoglobin A1c. 04/14/2021 Patient today looks better with slurred speech is less severe, no or very minimal facial division, no new weakness or other deficit. However his blood pressure was uncontrolled today and because he had bradycardia overnight with lower the dose of metoprolol to 25 mg twice daily instead of 50 mg twice daily, and added Norvasc 2.5 mg twice daily. Echocardiogram showed ejection fraction of 55-60%. MRI showing acute to subacute left frontoparietal infarct Neurologist recommended Plavix for 3 weeks and to continue thereafter old with aspirin at a dose of 81 mg twice daily. Possible discharge in 24-48 hours if supplies blood pressure on patient keep improving Objective - Vital Signs Vital signs: Vital Signs Temp 97.6 F 06/02/21 12:52 Pulse 63 04/14/21 12:52 Resp 18 04/14/21 12:52 BP 202/90 04/14/21 12:52 Pulse Ox 97 04/14/21 08:00 Intake & Output 04/13/21 04/14/21 04/14/21 18:59 06:59 18:59 Intake Total 615 375 180 Balance 615 375 180 Weight 80 kg Intake: IV 375 Sodium Chloride 0.9% 1, 375 000 ml @ 75 mls/hr IV . [id number] LUCY Rx#:[id number] Intake, IV Titration 375 Amount Sodium Chloride 0.9% 1, 375 000 ml @ 75 mls/hr IV . [id number] LUCY Rx#:[id number] Oral 240 180 Other: # Voids 1 # Bowel Movements 1 - Exam GENERAL: The patient is alert and oriented x3, not in any acute distress. Well developed, well nourished. HEENT: Pupils are round and equally reacting to light. EOMI. No scleral icterus. No conjunctival pallor. Normocephalic, atraumatic. No pharyngeal erythema. No thyromegaly. CARDIOVASCULAR: S1 and S2 present. No murmurs, rubs, or gallops. PULMONARY: Chest is clear to auscultation, no wheezing or crackles. ABDOMEN: Soft, nontender, nondistended, normoactive bowel sounds. No palpable organomegaly. MUSCULOSKELETAL: No joint swelling or deformity. EXTREMITIES: No cyanosis, clubbing, or pedal edema. -NEUROLOGICAL: Patient still have slurred speech, however right facial droop is less severe today. The rest of Cranial nerves are grossly intact . Strength is 5/5, sensation is intact SKIN: No rashes. no petechiae. - Labs CBC & Chem 7: 04/12/21 13:24 04/12/21 13:24 Assessment and Plan Assessment: Acute slurred speech and left facial division suspicious for right-sided stroke. Permissive hypertension History of rheumatoid arthritis Plan: This is a pleasant 75 years old male who presents with stroke. Continue with a spirin and Plavix. Neurological assessment and neurology service consult Check hemoglobin A1c, B12 and folate, check TSH. Echocardiogram and carotid duplex. Labs and medication were reviewed.. Continue same treatment. Continue with symptomatic treatment. Resume home medication. Monitor lytes and vitals. DVT and GI prophylaxis. Further recommendations depends on the clinical course of the patient DVT prophylaxis: Subcutaneous heparin GI Prophylaxis: Pepcid PT/OT: Pending Prognosis is guarded
[2021-04-15 08:14] VITALS: PULSE 55; RESP 16; TEMP 98.2
[2021-04-15] MEDS: amLODIPine 2.5 MG TAB PO SCH ×2 (08:14→11:24)
[2021-04-15] MEDS: CYANOCOBALAMIN 500 MCG TAB PO SCH (08:14)
[2021-04-15] MEDS: GABAPENTIN 300 MG CAP PO SCH (08:14)
[2021-04-15] MEDS: CEPHALEXIN 500 MG CAP PO SCH (08:14)
[2021-04-15] MEDS: FAMOTIDINE 20 MG TAB PO SCH (08:14)
[2021-04-15] MEDS: HEPARIN SODIUM,PORCINE/PF 5,000 UNIT/0.5 ML SYRINGE SQ SCH (08:14)
[2021-04-15] MEDS: METOPROLOL TARTRATE 25 MG TAB PO SCH (08:15)
[2021-04-15] MEDS ORDERED: ASPIRIN 81 MG PO SCH (09:00)
--- NOTE | 2021-04-15 10:34 | P.PN ---
Subjective Progress Note Date: 04/14/21 Patient was seen for a follow-up. Patient is feeling much better. His speech has improved. Denies any new focal symptoms. Denies headache. Patient has been walking in the hallway without any issues. Lately his blood pressure has been up. Objective - Vital Signs Vital signs: Vital Signs Temp 97.6 F 04/14/21 12:52 Pulse 65 04/14/21 16:49 Resp 16 04/14/21 16:49 BP 188/86 04/14/21 16:49 Pulse Ox 94 L 04/14/21 16:49 Intake & Output 04/13/21 04/14/21 04/14/21 18:59 06:59 18:59 Intake Total 615 375 640 Output Total 2 Balance 615 375 638 Weight 80 kg Intake: IV 375 Sodium Chloride 0.9% 1, 375 000 ml @ 75 mls/hr IV . [id number] LUCY Rx#:[id number] Intake, IV Titration 375 Amount Sodium Chloride 0.9% 1, 375 000 ml @ 75 mls/hr IV . [id number] LUCY Rx#:[id number] Oral 240 640 Output: Urine 2 Other: # Voids 1 # Bowel Movements 1 1 - Exam On examination patient is an elderly male, in no distress. Speech is mildly dysarthric. No aphasia. Can name and repeat. Cranial nerves are significant for right facial weakness, better than yesterday. Tongue protrudes to the midline. Facial sensations normal. Visual burr full. Muscle strength no drift and the strength is normal in arms and legs. Sensations are equal with no neglect. No ataxia. - Labs CBC & Chem 7: 04/12/21 13:24 04/12/21 13:24 Assessment and Plan Assessment: * Acute CVA involving subcortical white matter on the left, likely from small vessel disease. CVA manifesting with slurred speech and right facial droop. * Hypertension * X tobacco use Plan: * MRI of the brain confirmed acute to subacute CVA involving the periventricular white matter left frontoparietal region. Mechanism likely from small vessel disease. * 2-D echo revealed normal left-ventricular size. Moderate concentric LVH. EF is between 55-60%. Right ventricle is mild to moderately enlarged. No ev idence of interatrial communication by color flow Doppler analysis and by agitated saline study. * CTA of head and neck is normal, no need for carotid Doppler. * Fasting a.m. lipid panel with cholesterol 141, LDL 73, HDL 51, triglycerides 83. Continue Lipitor 40 mg daily. * Hemoglobin A1c 5.9. * B12 1050, folate 13.8 and TSH pending. * Continue dual antiplatelet medication for 3 weeks, then stop Plavix and then maintain on aspirin 81 mg twice a day. Patient was not taking any antiplatelet medication at home prior to this stroke. * Continue telemetry monitoring rule out arrhythmia. * May controlled blood pressure gradually. * Speech therapy as outpatient. * Neurologically clear when stable from blood pressure standpoint.
[2021-04-15 11:13] VITALS: BP 166/70
[2021-04-15] MEDS ORDERED: amLODIPine 2.5 MG TAB PO STA (11:21)
[2021-04-15] MEDS ORDERED: amLODIPine 5 MG TAB PO STA (11:21)
--- NOTE | 2021-04-15 22:32 | P.DS ---
Providers Date of admission: 04/12/21 15:29 Attending physician: Khushbu Perdue Consults: 04/12/21 15:29 Consult Physician Urgent Consulting Provider: Mae Quarles Consult Reason/Comments: cva Do you want consulting provider notified?: Yes Primary care physician: Physician Nonstaff Hospital Course: Diagnoses: Acute slurred speech and left facial division secondary to left frontoparietal stroke hypertension with urgency, improved History of rheumatoid arthritis Hospital course: This is a pleasant 75 years old male with past medical history of rheumatoid arthritis, [facility] [place] He presents with his fiance who stated that last night patient has some slurred speech , with face deviated to the left side over 2 days. Patient did not receive TPA. He was admitted to the hospital and evaluated by neurologist.Echocardiogram showed ejection fraction of 55-60%. MRI showing acute to subacute left frontoparietal infarct. Patient was started on aspirin and Plavix and his symptoms improved and facial division almost disappeared and his face appears on discharge is symmetrical and his slurred speech is significantly improved with only minimal residual slurring. No other symptoms. Was cleared for discharge by neurologist. Patient was eager to be discharged His heart rate was up into 30s during night metoprolol 50 mg lower to 25 mg twice daily and Norvasc added to 5 mg daily and 2.5 mg at bedtime. His blood pressure is improving and better controlled upon discharge. Neurologist recommendation he will lose his aspirin 81 mg daily and Plavix for 3 weeks, after 3 weeks he will stop Plavix and will increase aspirin 81 mg to twice daily, these recommendations are explained to the patient and at bedside extensively and repeatedly with written instructions provided and they verbalized understanding and acceptance. Problems and management plan were discussed with the patient and he verbalized understanding and acceptance Patient was found stable and can be discharged home however he needs follow-up as an outpatient. Patient was instructed [facility] [place] and he agrees to call and make appointment. Also patient was instructed to follow up with neurologist within one to 2 weeks, I suggested to him including Bryan Poe, Dr. Cortés and he agrees to make his appointment Physical exam Gen: patient is a AAOx3, no distress CVS: S1-S2, RRR, no murmur Lungs: B/L CTA, no wheezing Abdomen: soft, no distention, no tenderness, positive bowel sounds Extremity: no leg edema or induration Neuro: Very minimal [place], no facial diffusion. Gross cranial nerves are intact. Strength 5/5, sensation intact in all extremities Time spent more than 35 minutes Plan - Discharge Summary Discharge Rx Participant: No New Discharge Prescriptions: New Clopidogrel [Plavix] 75 mg PO HS 21 Days #21 tab amLODIPine [Norvasc] 2.5 mg PO BID #60 tab amLODIPine BESYLATE [Norvasc] 2.5 mg PO DAILY #30 tab Cephalexin [Keflex] 500 mg PO TID 30 Days #10 cap Famotidine [Pepcid] 20 mg PO Q12HR #60 tab Aspirin 81 mg PO BID #60 chew Aspirin 81 mg PO DAILY 21 Days #21 chewable Continue Simvastatin [Zocor] 20 mg PO HS Metoprolol Tartrate [Lopressor] 50 mg PO BID Gabapentin [Neurontin] 300 mg PO TID Folic Acid 1 mg PO HS Cyanocobalamin (Vitamin B-12) [Vitamin B-12] 2,500 mcg PO DAILY Certolizumab Pegol [Cimzia] 400 mg SQ Q30D Methotrexate 50mg/2mg Vial 25 mg SQ WE Discharge Medication List Folic Acid 1 mg PO HS 08/24/16 [History] Gabapentin [Neurontin] 300 mg PO TID 08/24/16 [History] Metoprolol Tartrate [Lopressor] 50 mg PO BID 08/24/16 [History] Simvastatin [Zocor] 20 mg PO HS 08/24/16 [History] Certolizumab Pegol [Cimzia] 400 mg SQ Q30D 04/12/21 [History] Cyanocobalamin (Vitamin B-12) [Vitamin B-12] 2,500 mcg PO DAILY 04/12/21 [History] Methotrexate 50mg/2mg Vial 25 mg SQ WE 04/12/21 [History] Aspirin 81 mg PO BID #60 chew 04/14/21 [Rx] Cephalexin [Keflex] 500 mg PO TID 30 Days #10 cap 04/14/21 [Rx] Clopidogrel [Plavix] 75 mg PO HS 21 Days #21 tab 04/14/21 [Rx] Famotidine [Pepcid] 20 mg PO Q12HR #60 tab 04/14/21 [Rx] Aspirin 81 mg PO DAILY 21 Days #21 chewable 04/15/21 [Rx] amLODIPine BESYLATE [Norvasc] 2.5 mg PO DAILY #30 tab 04/15/21 [Rx] amLODIPine [Norvasc] 2.5 mg PO BID #60 tab 04/15/21 [Rx] Follow up Appointment(s)/Referral(s): Omar Randall MD [Medical Doctor] - 2 Weeks (neurologist ) ShoaibPhysician [Primary Care Provider] - 1-2 days Elidia Cortés MD [REFERRING] - 1 Week (Neurologist) Manish Adams DO [STAFF PHYSICIAN] - 1 Week (neurologist ) Patient Instructions/Handouts: Ischemic Stroke (DC) Activity/Diet/Wound Care/Special Instructions: Heart healthy diet Activity is restricted till you see your doctor Take aspirin 81 mg once daily plus Plavix 75 mg daily for 3 weeks (last dose on 05/06/21). Then stop Plavix and continue with aspirin 81 mg twice daily (starting on 05/07/21) Discharge Disposition: HOME SELF-CARE
== END 2021-04-15 13:30 | disposition home or self-care (01) | DRG 66 ==
LOC: EC 12:10 → 3SCARD 15:29
PROVIDERS: ADMIT Hospitalist; ATTEND Hospitalist
DX: I63.89 Other cerebral infarction (principal); R47.81 Slurred speech; R29.810 Facial weakness; M06.9 Rheumatoid arthritis, unspecified; I10 Essential (primary) hypertension; R73.03 Prediabetes; Z20.822 Contact with and (suspected) exposure to COVID-19; I73.9 Peripheral vascular disease, unspecified; Z91.018 Allergy to other foods; Z87.891 Personal history of nicotine dependence; Z79.899 Other long term (current) drug therapy
CPT/HCPCS: 36415; 70450; 70496; 70498; 70551; 71046; 80053; 80061; 82607; 82746; 83036; 84443; 84484; 85025; 85610; 85730; 87635; 93005; 93306; 96360; 96361; 99285

== ENCOUNTER → 2024-03-05 | Outpatient (CLI) | payer MEDICARE ==
[2024-03-05 09:40] LABS: Prothrombin Time 11.4 sec (10.0-12.5)
== END | disposition home or self-care (01) ==
LOC: LABWHC1 09:16
PROVIDERS: ATTEND Dentist Oral and Maxillofacial Surgery
DX: D68.32 Hemorrhagic disorder due to extrinsic circulating anticoagulants (principal)
CPT/HCPCS: 36415; 85610